=== PATIENT | female | born 1980 | race Caucasian/White ===

== ENCOUNTER 2021-03-04 10:58 | Emergency (ER) | payer BC ==
[~2021-03-04] VITALS: Ht 157.5 cm; Wt 136.4 kg
[2021-03-04] MEDS ORDERED: ketorolac trometh. 30mg/ml inj. IM ONE (11:05)
[2021-03-04 12:42] VITALS: BP 132/74
== END 2021-03-04 12:46 | disposition home or self-care (01) ==
LOC: ER 10:59
DX: S83.92XA Sprain of unspecified site of left knee, initial encounter (principal); Z98.891 History of uterine scar from previous surgery; X50.1XXA Overexertion from prolonged static or awkward postures, initial encounter; Y93.73 Activity, racquet and hand sports; Y92.89 Other specified places as the place of occurrence of the external cause; Y99.8 Other external cause status
CPT/HCPCS: 29505; 73564; 99284; J1885

== ENCOUNTER 2021-09-28 05:32 | Day surgery (SDC) | payer BC ==
[2021-09-20 12:38] LABS: BASOPHILS % (AUTO) 0.4 % (0-1); EOSINOPHILS # (AUTO) 0.1 X10'3 (0-0.9); EOSINOPHILS % (AUTO) 0.9 % (0-6); LYMPHOCYTES # (AUTO) 2.1 X10'3 (1.1-4.8); MEAN CORPUSCULAR HEMOGLOBIN 27.2 PG (27.0-31.0); MEAN CORPUSCULAR HGB CONC 32.3 g/dL (33.0-36.5); MEAN CORPUSCULAR VOLUME 84.4 FL (78-98); MEAN PLATELET VOLUME 7.1 FL (7.4-10.4); MONOCYTES # (AUTO) 0.4 X10'3 (0-0.9); MONOCYTES % (AUTO) 5.4 % (2-12); NEUTROPHILS # (AUTO) 4.8 X10'3 (1.8-7.7); NEUTROPHILS % (AUTO) 65.3 % (42-75); PRE OP HEMATOCRIT 39.1 % (35.0-45.0); PRE OP HEMOGLOBIN 12.6 g/dL (12.0-16.0); PRE OP PLATELET COUNT 293 X10'3 (140-440); RED BLOOD COUNT 4.63 X10'6 (4.20-5.60); RED CELL DISTRIBUTION WIDTH 15.2 % (11.5-14.5)
[2021-09-20 12:53] LABS: ALBUMIN 3.4 G/DL (3.4-5.0); ALBUMIN/GLOBULIN RATIO 0.9 (1.1-1.5); ALKALINE PHOSPHATASE 77 IU/L (46-116); BLOOD UREA NITROGEN 12 MG/DL (7-18); BUN/CREATININE RATIO 16.9 (6.6-38.0); CALCIUM 8.8 MG/DL (8.5-10.1); CHLORIDE 106 MMOL/L (99-107); CREATININE 0.71 MG/DL (0.40-0.90); PRE OP ALT 26 U/L (30-65); PRE OP ANION GAP 9 (8-16); PRE OP AST 13 U/L (10-37); PRE OP BILIRUB, TOTAL 0.3 MG/DL (0.0-1.0); PRE OP GLUCOSE 82 MG/DL (70-104); PRE OP POTASSIUM 3.8 MMOL/L (3.4-5.1); PRE OP SODIUM 141 MMOL/L (135-145); TOTAL CARBON DIOXIDE 26.1 MMOL/L (24-32); TOTAL PROTEIN 7.2 G/DL (6.4-8.2); eGFR > 90 ML/MIN
[2021-09-20 13:02] LABS: HCG SERUM QL NEGATIVE
[2021-09-28] VITALS (9 sets, daily range): BP systolic 92–143; BP diastolic 49–85
[~2021-09-28] VITALS: Ht 157.5 cm; Wt 139.9 kg
[~2021-09-28 05:32] MED LIST: ESCI20TA39 PO; cefazolin/dext.iso 2gm/50ml 50 ML IV ONE; famotidine 20mg tablet PO ONE; ringers solution, lacted 1,000 ML IV SCH
[2021-09-28] MEDS ORDERED: bacitracin 15gm ointment TP ONE (06:56)
[2021-09-28] MEDS ORDERED: BUPIVAcaine/PF 2.5 mg/ml (0.25%) 30ml vial ONE (06:56)
[2021-09-28] MEDS ORDERED: sevoflurane 250ml liquid IH ONE (07:12)
[2021-09-28] MEDS ORDERED: fentaNYL /PF 50mcg/ml 5ml ampule ONE (07:15)
[2021-09-28] MEDS ORDERED: midazolam 1 mg/ML 2ml injection ONE (07:15)
[2021-09-28] MEDS ORDERED: propofol inj 20 ML IV ONE (07:17)
[2021-09-28] MEDS ORDERED: LIDOcaine 2% (20mg/ml) 5ml vial ONE (07:17)
[2021-09-28] MEDS ORDERED: rocuronium 10mg/ml inj IV ONE (07:17)
[2021-09-28] MEDS ORDERED: meperidine/PF 25mg/ml syringe IV PRN ×3 (07:35)
[2021-09-28] MEDS ORDERED: morphine 4 MG/ML inj SYRINge IV PRN (07:35)
[2021-09-28] MEDS ORDERED: ringers solution, lacted 1,000 ML IV SCH (07:35)
[2021-09-28] MEDS ORDERED: morphine 2 MG/ML inj. syringe IV PRN (07:35)
[2021-09-28] MEDS ORDERED: proCHLORperazine 10 MG/2 ml inj IV PRN (07:35)
[2021-09-28] MEDS ORDERED: ondansetron/PF 4mg/2ml inj IV PRN (07:35)
[2021-09-28] MEDS ORDERED: dexamethasone sod phosphate 4mg/ml inj. ONE (08:46)
[2021-09-28] MEDS ORDERED: glycopyrrolate 0.2mg/ml inj ONE (08:46)
[2021-09-28] MEDS ORDERED: ePHEDrine 50MG/ML INJ. ONE (08:46)
[2021-09-28] MEDS ORDERED: acetaminophen 1,000mg/100ml IV 100 ML IV ONE (08:46)
[2021-09-28] MEDS ORDERED: ondansetron/PF 4mg/2ml inj ONE (08:46)
[2021-09-28] MEDS ORDERED: neostigmine methylsulfate 1 MG/ML 10ml vial ONE (08:46)
--- NOTE | 2021-09-28 08:58 | NUR ---
Received from OR via , accompanied by Anesthesiologist DR LOREDO and report given by Anesthesiolgist. AWAKENS TO VOICE. VITALS STABLE. DRESSING DIAguilar AGGARWAL.
--- NOTE | 2021-09-28 10:28 | NUR ---
AWAKE AND ORIENTED. VITALS STABLE. DRESSING DI. ROBEL PAIN. HOME WITH HER SPOUSE AT THIS TIME.
== END 2021-09-28 10:28 | disposition home or self-care (01) ==
LOC: PAS 05:32
PROVIDERS: ATTEND Podiatrist Foot & Ankle Surgery
DX: M21.372 Foot drop, left foot (principal); G57.82 Other specified mononeuropathies of left lower limb; F32.9 Major depressive disorder, single episode, unspecified; Z20.822 Contact with and (suspected) exposure to COVID-19; Z98.890 Other specified postprocedural states; E66.01 Morbid (severe) obesity due to excess calories; Z68.43 Body mass index [BMI] 50.0-59.9, adult; Z79.82 Long term (current) use of aspirin; Z79.899 Other long term (current) drug therapy; Z80.8 Family history of malignant neoplasm of other organs or systems
CPT/HCPCS: 36415; 64708; 80053; 82948; 84703; 85025; 93005; A6223; J0131; J1100; J2001; J2250; J2405; J2704; J2710; J3010; J3490; U0003; U0005; Z7506; Z7508; Z7512; A4215; A4618; A6449; A7000; J7120